=== PATIENT | male | born 1995 | race Caucasian/White ===

== ENCOUNTER 2023-06-16 19:45 | Emergency (ER) | payer BC ==
[2023-06-16] MEDS: Tetracaine HCl/PF 0.5% 4 ML Bottle EYEBOTH ONE (21:15)
[2023-06-16] MEDS ORDERED: Ofloxacin 0.3% Ophth Soln 5 ML Bottle EYERT ONE (22:50)
== END 2023-06-16 23:00 | disposition left against medical advice (07) ==
LOC: MERGE 19:45 → MW.ED 19:45
DX: S05.01XA Injury of conjunctiva and corneal abrasion without foreign body, right eye, initial encounter (principal); H21.01 Hyphema, right eye; W22.8XXA Striking against or struck by other objects, initial encounter
CPT/HCPCS: 99283; J3490

== ENCOUNTER 2023-08-11 12:26 | Emergency (ER) | payer BC ==
[2023-08-11] MEDS: Benzocaine 20% Topical Spray UD MUCMEM ONE (13:06)
[2023-08-11] MEDS: Lidocaine 2% Viscous Solution 15 ML UD PO ONE (13:06)
== END 2023-08-11 13:10 | disposition home or self-care (01) ==
LOC: MW.ED 12:26
DX: K04.7 Periapical abscess without sinus (principal); Z75.8 Other problems related to medical facilities and other health care; Z79.899 Other long term (current) drug therapy
CPT/HCPCS: 99282; A9270; 99283

== ENCOUNTER 2023-09-24 11:52 | Emergency (ER) | payer OTHER, BC ==
[2023-09-24] MEDS ORDERED: Naloxone 0.4 MG/ML SDV IVPUSH PRN (12:02)
[2023-09-24 12:05] LABS: BASOPHILS ABSOLUTE AUTO 0.07 K/uL (0.00-0.20); BASOPHILS PERCENT AUTO 0.7 % (0.0-1.0); EOSINOPHILS ABSOLUTE AUTO 0.13 K/uL (0.00-0.45); EOSINOPHILS PERCENT AUTO 1.2 % (0.0-6.0); IMMATURE GRAN ABSOLUTE AUTO 0.03 K/uL (0.00-0.05); IMMATURE GRAN PERCENT AUTO 0.3 % (0.0-0.4); LYMPHOCYTES ABSOLUTE AUTO 2.96 K/uL (1.00-4.80); LYMPHOCYTES PERCENT AUTO 27.8 % (24.0-44.0); MEAN CORPUSCULAR HEMOGLOBIN 31.5 pg (28.0-32.0); MEAN CORPUSCULAR HGB CONC 35.4 g/dL (32.0-36.0); MEAN CORPUSCULAR VOLUME 89.1 fL (83.0-99.0); MEAN PLATELET VOLUME 9.7 fL (9.4-12.4); MONOCYTES ABSOLUTE AUTO 1.14 K/uL (0.00-0.80); MONOCYTES PERCENT AUTO 10.7 % (0.0-8.0); NEUTROPHILS PERCENT AUTO 59.3 % (41.0-71.0); PLATELET COUNT,PLT 353 K/uL (150-400); RED BLOOD CELL COUNT 5.39 M/uL (4.52-5.90); WHITE BLOOD CELL COUNT,WBC 10.63 K/uL (3.9-11.3)
[2023-09-24] MEDS: Sodium Chloride 0.9% 1,000 ML IV ONE (12:13)
[2023-09-24] MEDS: Morphine 2 MG/ML SYRINGE IVPUSH ONE (12:14)
[2023-09-24 12:39] LABS: A/G RATIO 1.3 (0.9-1.6); ALANINE AMINOTRANSFERASE,ALT 28 IU/L (14-63); ALBUMIN 4.6 g/dL (3.4-5.0); ALKALINE PHOSPHATASE 114 U/L (46-116); ASPARTATE AMNIOTRANSFERASE,AST 31 IU/L (15-37); BILIRUBIN TOTAL 0.5 mg/dL (0.2-1.0); BLOOD UREA NITROGEN,BUN 10 mg/dL (7.0-18.0); CARBON DIOXIDE,CO2 23.7 mmol/L (21.0-32.0); CHLORIDE,CL 105 mmol/L (98-107); EST CRCL DRUG DOSING (CG) 99.83 mL/min; GLUCOSE RANDOM 80 mg/dL (74-106); POTASSIUM,K 4.1 mmol/L (3.5-5.1); PROTEIN TOTAL,TP 8.1 g/dL (6.4-8.2); SODIUM,NA 139 mmol/L (136-148)
[2023-09-24 12:40] LABS: ESTIMATED GFR 107 mL/min (>60)
[2023-09-24] MEDS: Iopamidol 755 MG/ML 500 ML Multipack Bottle IVPUSH STA (13:50)
[2023-09-24] MEDS: Lidocaine 4% 1 each Patch TOP PRN (15:31)
[2023-09-24] MEDS: Ibuprofen 800 MG Tab PO ONE (15:32)
== END 2023-09-24 16:03 | disposition home or self-care (01) ==
LOC: MW.ED 11:52
DX: S20.212A Contusion of left front wall of thorax, initial encounter (principal); Z75.8 Other problems related to medical facilities and other health care; V28.09XA Other motorcycle driver injured in noncollision transport accident in nontraffic accident, initial encounter
CPT/HCPCS: 36415; 71101; 71260; 72170; 74177; 80053; 84484; 85025; 96361; 96374; 99284; A9270; J2270; J7030; Q9967

== ENCOUNTER 2023-10-23 09:18 | Emergency (ER) | payer BC ==
[2023-10-23 10:13] LABS: BASOPHILS ABSOLUTE AUTO 0.02 K/uL (0.00-0.20); BASOPHILS PERCENT AUTO 0.1 % (0.0-1.0); EOSINOPHILS ABSOLUTE AUTO 0.02 K/uL (0.00-0.45); EOSINOPHILS PERCENT AUTO 0.1 % (0.0-6.0); HEMATOCRIT 44.8 % (42.0-52.0); HEMOGLOBIN 15.7 g/dL (14.0-18.0); IMMATURE GRAN ABSOLUTE AUTO 0.05 K/uL (0.00-0.05); IMMATURE GRAN PERCENT AUTO 0.3 % (0.0-0.4); LYMPHOCYTES ABSOLUTE AUTO 1.56 K/uL (1.00-4.80); LYMPHOCYTES PERCENT AUTO 10.6 % (24.0-44.0); MEAN CORPUSCULAR HEMOGLOBIN 31.5 pg (28.0-32.0); MEAN CORPUSCULAR VOLUME 89.8 fL (83.0-99.0); MEAN PLATELET VOLUME 9.7 fL (9.4-12.4); MONOCYTES ABSOLUTE AUTO 1.24 K/uL (0.00-0.80); MONOCYTES PERCENT AUTO 8.4 % (0.0-8.0); NEUTROPHILS ABSOLUTE AUTO 11.82 K/uL (1.80-7.70); NEUTROPHILS PERCENT AUTO 80.5 % (41.0-71.0); PLATELET COUNT,PLT 284 K/uL (150-400); RED BLOOD CELL COUNT 4.99 M/uL (4.52-5.90); WHITE BLOOD CELL COUNT,WBC 14.71 K/uL (3.9-11.3)
[2023-10-23] MEDS: Diphtheria,Pertussis(Acell),Tetanus Vaccine 0.5 ML Syringe IM ONE (10:25)
[2023-10-23] MEDS: Ketorolac 30 MG/ML SDV IVPUSH ONE (10:25)
[2023-10-23] MEDS: Sodium Chloride 0.9% 10 ML Syringe FLUSH PRN (10:26)
[2023-10-23] MEDS: Sodium Chloride 0.9% 2.5 ML Syringe FLUSH PRN (10:26)
[2023-10-23] MEDS: Lidocaine 1% with EPINEPHrine 1:100,000 10 ML MDV INJECT ONE (10:26)
[2023-10-23 10:27] LABS: INR 1.08 (0.86-1.11)
[2023-10-23 10:48] LABS: CALCIUM 9.3 mg/dL (8.5-10.1); CARBON DIOXIDE,CO2 29.1 mmol/L (21.0-32.0); EST CRCL DRUG DOSING (CG) 107.73 mL/min; POTASSIUM,K 3.7 mmol/L (3.5-5.1)
[2023-10-23] MEDS: Clindamycin Phosphate in D5W 600 MG in Premix Bag 1 BAG IV ONE (11:37)
[2023-10-23] MEDS: Bacitracin Oint 1 GM U/D Packet TOP ONE (12:40)
== END 2023-10-23 12:45 | disposition home or self-care (01) ==
LOC: MW.ED 09:18
DX: L02.511 Cutaneous abscess of right hand (principal); Z75.8 Other problems related to medical facilities and other health care; Z23 Encounter for immunization; Z79.899 Other long term (current) drug therapy
CPT/HCPCS: 10060; 36415; 73120; 80048; 85025; 85610; 87040; 87070; 87075; 87077; 87186; 87205; 90471; 90715; 96365; 96375; 99283; J0736; J1885; J3490; 99284

== ENCOUNTER 2024-12-28 10:40 | Emergency (ER) | payer OTHER, MEDICAID ==
[2024-12-28] MEDS: fentaNYL 100 MCG/2 ML SDV IM ONE (13:01)
== END 2024-12-28 15:39 | disposition home or self-care (01) ==
LOC: MW.ED 10:40
DX: S02.652A Fracture of angle of left mandible, initial encounter for closed fracture (principal); V29.098A Other motorcycle driver injured in collision with other motor vehicles in nontraffic accident, initial encounter; Y93.89 Activity, other specified
CPT/HCPCS: 70486; 96372; 99283; J2270; J3010; 99284